=== PATIENT | male | born 1945 | race Two or more races ===

== ENCOUNTER 2018-05-28 09:57 | Outpatient (CLI) | payer OTHER | END 2018-05-28 10:05 | disposition home or self-care (01) | LOC: RAD 501 09:57 | DX: M25.512 Pain in left shoulder (principal); M79.604 Pain in right leg ==

== ENCOUNTER → 2018-06-13 | Outpatient (CLI) | payer OTHER | END | disposition home or self-care (01) | LOC: NUCLEAR 11:00 | DX: M81.0 Age-related osteoporosis without current pathological fracture (principal) ==

== ENCOUNTER → 2018-06-16 | Outpatient (CLI) | payer OTHER | END | disposition home or self-care (01) | LOC: RAD 501 09:12 | DX: M25.511 Pain in right shoulder (principal); S42.125A Nondisplaced fracture of acromial process, left shoulder, initial encounter for closed fracture ==

== ENCOUNTER → 2018-10-09 07:01 | Outpatient (CLI) | payer OTHER ==
[~2018-10-09 07:01] MED LIST: LIPITOR20 MG PO; ZANTAC300 MG PO
== END | disposition home or self-care (01) ==
LOC: LAB 07:01
DX: D64.89 Other specified anemias (principal); E88.89 Other specified metabolic disorders; D68.8 Other specified coagulation defects; N39.0 Urinary tract infection, site not specified; Z22.322 Carrier or suspected carrier of Methicillin resistant Staphylococcus aureus; Z76.89 Persons encountering health services in other specified circumstances; I49.8 Other specified cardiac arrhythmias

== ENCOUNTER → 2018-10-17 | Day surgery (SDC) | payer OTHER | END | disposition home or self-care (01) | LOC: CIR.AMB 05:20 | DX: M75.112 Incomplete rotator cuff tear or rupture of left shoulder, not specified as traumatic (principal); M75.22 Bicipital tendinitis, left shoulder; M24.512 Contracture, left shoulder ==